=== PATIENT | female | born 1975 | race Caucasian/White ===

== ENCOUNTER 2018-03-04 21:57 | Inpatient (IN) | payer SELFPAY ==
[~2018-03-04] VITALS: Ht 157.5 cm; Wt 114.3 kg
[2018-03-05] MEDS ORDERED: SODIUM CHLORIDE 0.9% 1,000 ML IV ONE (00:09)
[2018-03-05] MEDS ORDERED: VANCOMYCIN 1 G PREMIX 200 ML IV ONE (00:15)
[2018-03-05] MEDS ORDERED: PIPERACILLIN/TAZ 3.375G PREMIX 50 ML IV ONE (00:15)
[2018-03-05 01:22] LABS: HEMATOCRIT. 23.3 % (36.0-48.0); MEAN CORPUSCULAR HEMOGLOBIN 17.9 pg (28.0-32.0); MEAN CORPUSCULAR VOLUME 60.4 fL (81.0-99.0); MEAN PLATELET VOLUME 7.3 fl (7.4-10.4); PLATELET 310 x1000/uL (130-400); RED BLOOD CELL COUNT 3.86 mill/uL (4.2-5.4); RED CELL DISTRIBUTION WIDTH 18.5 % (11.6-14.6)
[2018-03-05 01:26] LABS: HEMOGLOBIN. 6.9 g/dL (12.0-16.0)
[2018-03-05 01:28] LABS: CHLORIDE 101 mEq/L (98-107)
[2018-03-05 01:50] LABS: PLATELET ESTIMATE NORMAL
[2018-03-05] MEDS ORDERED: HYDROMORPHONE HCL/PF 2MG/ML CPJ IV PRN (05:00)
[2018-03-05] MEDS ORDERED: DOCUSATE SODIUM 100MG CAPSULE PO PRN (05:00)
[2018-03-05] MEDS ORDERED: CLONIDINE 0.1MG TABLET PO PRN (05:00)
[2018-03-05] MEDS ORDERED: AZITHROMYCIN 500 MG in DEXT 5% WATER 250 ML IV ONE (07:02)
[2018-03-05 07:09] LABS: CLARITY URINE CLOUDY (CLEAR); COLOR URINE YELLOW (YELLOW); KETONES URINE NEGATIVE (NEGATIVE); LEUKOCYTE ESTERASE URINE NEGATIVE (NEGATIVE); NITRITE URINE NEGATIVE (NEGATIVE); OCCULT BLOOD URINE 2+ (NEGATIVE); PROTEIN URINE 2+ (NEGATIVE); SPECIFIC GRAVITY URINE 1.021 (1.005-1.030); UROBILINOGEN URINE 0.2 E.U./dL (0.2-1.0)
[2018-03-05 09:55] VITALS: BP 127/59
[2018-03-05 10:00] VITALS: BP 127/59
[2018-03-05] MEDS ORDERED: LEVOFLOXACIN 500MG PREMIX 100 ML IV SCH (12:00)
[2018-03-05] MEDS: SODIUM CHLORIDE 0.45% 1,000 ML IV SCH ×2 (12:30→19:54)
[2018-03-05 12:38] VITALS: BP 132/63
[2018-03-05] MEDS: VANCOMYCIN 1 G PREMIX 200 ML IV SCH ×2 (12:40→21:31)
[2018-03-05] MEDS: ACETAMINOPHEN 325MG TABLET PO PRN (12:56)
[2018-03-05 16:35] VITALS: BP 120/61
[2018-03-05 20:15] VITALS: BP 145/67
[2018-03-06] VITALS (13 sets, daily range): BP systolic 106–145; BP diastolic 49–86
[2018-03-06 03:21] LABS: CHLORIDE 100 mEq/L (98-107)
[2018-03-06] MEDS: VANCOMYCIN 1 G PREMIX 200 ML IV SCH ×3 (03:47→22:39)
[2018-03-06 06:41] LABS: BASOPHILS % 0.2 % (0.0-2.0); LYMPHOCYTES % 8.6 % (20.0-50.0); MEAN CORPUSCULAR HEMOGLOBIN 18.9 pg (28.0-32.0); MEAN CORPUSCULAR VOLUME 62.1 fL (81.0-99.0); MEAN PLATELET VOLUME 8.6 fl (7.4-10.4); NEUTROPHILS % 85.2 % (40.0-76.0); PLATELET 237 x1000/uL (130-400); RED BLOOD CELL COUNT 3.27 mill/uL (4.2-5.4); RED CELL DISTRIBUTION WIDTH 18.9 % (11.6-14.6)
[2018-03-06 07:07] LABS: HEMATOCRIT. 20.3 % (36.0-48.0); HEMOGLOBIN. 6.2 g/dL (12.0-16.0)
[2018-03-06] MEDS: SODIUM CHLORIDE 0.45% 1,000 ML IV SCH (08:15)
[2018-03-06] MEDS: FERROUS SULFATE 300MG/5ML UDC PO SCH ×2 (14:31→18:02)
[2018-03-06 15:36] LABS: TOTAL IRON BINDING CAPACITY 473 ug/dL (250-450)
[2018-03-06] MEDS: LEVOFLOXACIN 500MG PREMIX 100 ML IV SCH (16:19)
[2018-03-06 17:43] LABS: HEMATOCRIT 23.4 % (36.0-48.0); HEMOGLOBIN 7.2 g/dL (12.0-16.0)
[2018-03-06] MEDS: HYDROCODONE/ACETAMINOPHEN 5/325MG TABLET PO PRN (19:48)
[2018-03-06 22:30] LABS: BG BASE EXCESS 0.8 mmol/L (-2.0-2.0); BG CARBOXYHEMOGLOBIN 1.2 % (0.5-1.5); BG DEOXYHEMOGLOBIN 1.6 % (0.0-5.0); BG FRACTION INSPIRED OXYGEN 28; BG HCO3 ACT 24.4 mmol/L (22.0-26.0); BG METHEMOGLOBIN 0.3 % (0.0-1.5); BG OXYGEN SATURATION 98.4 % (92.0-98.5); BG OXYHEMOGLOBIN 96.9 % (94.0-97.0); BG PCO2 34.6 mmHg (35.0-45.0); BG PH 7.467 (7.350-7.450); BG PO2 108.6 mmHg (75.0-100.0); BG SAMPLE SITE LEFT RADIAL; BG TOTAL HEMOGLOBIN 7.3 g/dL (12.0-18.0); BG VENT MODE NASAL CANNULA
[2018-03-06] MEDS: ACETAMINOPHEN 325MG TABLET PO PRN (22:40)
[2018-03-07] VITALS (17 sets, daily range): BP systolic 112–157; BP diastolic 55–89
[2018-03-07] MEDS: HYDROCODONE/ACETAMINOPHEN 5/325MG TABLET PO PRN (00:40)
[2018-03-07] MEDS: VANCOMYCIN 1 G PREMIX 200 ML IV SCH ×3 (05:37→21:29)
[2018-03-07 06:34] LABS: BASOPHILS % 0.3 % (0.0-2.0); EOSINOPHILS % 0.5 % (0.0-5.0); HEMATOCRIT. 22.4 % (36.0-48.0); LYMPHOCYTES % 11.8 % (20.0-50.0); MEAN CORPUSCULAR HEMOGLOBIN 19.4 pg (28.0-32.0); MEAN CORPUSCULAR VOLUME 62.6 fL (81.0-99.0); MEAN PLATELET VOLUME 8.6 fl (7.4-10.4); MONOCYTES % 8.2 % (2.0-8.0); NEUTROPHILS % 79.2 % (40.0-76.0); PLATELET 213 x1000/uL (130-400); RED BLOOD CELL COUNT 3.57 mill/uL (4.2-5.4); RED CELL DISTRIBUTION WIDTH 21.2 % (11.6-14.6)
[2018-03-07 07:27] LABS: CHLORIDE 102 mEq/L (98-107)
[2018-03-07 07:41] LABS: HEMOGLOBIN. 6.9 g/dL (12.0-16.0)
[2018-03-07] MEDS: FERROUS SULFATE 300MG/5ML UDC PO SCH ×3 (07:50→17:51)
[2018-03-07] MEDS: ACETAMINOPHEN 325MG TABLET PO PRN (10:32)
[2018-03-07] MEDS ORDERED: IPRATROPIUM/ALBUTEROL 0.5-3(2.5)MG/3ML NEB HHN PRN (15:00)
[2018-03-07] MEDS: LEVOFLOXACIN 500MG PREMIX 100 ML IV SCH (15:21)
[2018-03-07 17:54] LABS: HEMATOCRIT 22.8 % (36.0-48.0)
[2018-03-07 17:56] LABS: INR 0.9; PARTIAL THROMBOPLASTIN TIME 26.1 sec (23.4-31.0); PROTHROMBIN TIME 9.4 sec (9.1-11.1)
[2018-03-07 18:15] LABS: FOLIC ACID (FOLATE) SERUM 13.2 ng/mL (>5.38)
[2018-03-07] MEDS ORDERED: DIATR MEGLU/DIATRIZOATE SOLN 30ML PO NR (18:45)
[2018-03-07 20:29] LABS: CHLORIDE 100 mEq/L (98-107)
[2018-03-07] MEDS: METOCLOPRAMIDE HCL 10MG/2ML VIAL IV SCH ×2 (20:33→23:23)
[2018-03-07] MEDS: BISACODYL 5MG TABLET PO SCH ×2 (21:01→23:54)
[2018-03-07] MEDS: SORBITOL 70% SOLN 30ML PO SCH ×2 (21:01→23:53)
[2018-03-07] MEDS: IPRATROPIUM/ALBUTEROL 0.5-3(2.5)MG/3ML NEB HHN SCH (21:08)
[2018-03-07 22:35] LABS: HCG SCREEN NEGATIVE
[2018-03-07] MEDS ORDERED: POTASSIUM CHLORIDE 20MEQ/PACKET PO NR (22:50)
[2018-03-08] VITALS (14 sets, daily range): BP systolic 126–159; BP diastolic 71–94
[2018-03-08] MEDS: IPRATROPIUM/ALBUTEROL 0.5-3(2.5)MG/3ML NEB HHN SCH ×2 (01:15→21:02)
[2018-03-08] MEDS: METOCLOPRAMIDE HCL 10MG/2ML VIAL IV SCH ×2 (01:40→03:31)
[2018-03-08] MEDS: SORBITOL 70% SOLN 30ML PO SCH ×2 (02:07→04:09)
[2018-03-08] MEDS: BISACODYL 5MG TABLET PO SCH ×2 (02:07→04:09)
[2018-03-08] MEDS: VANCOMYCIN 1 G PREMIX 200 ML IV SCH ×3 (05:27→21:11)
[2018-03-08 06:54] LABS: HEMATOCRIT. 29.6 % (36.0-48.0); HEMOGLOBIN. 9.5 g/dL (12.0-16.0); MEAN CORPUSCULAR HEMOGLOBIN 21.4 pg (28.0-32.0); MEAN CORPUSCULAR VOLUME 66.7 fL (81.0-99.0); MEAN PLATELET VOLUME 8.6 fl (7.4-10.4); PLATELET 252 x1000/uL (130-400); RED BLOOD CELL COUNT 4.43 mill/uL (4.2-5.4); RED CELL DISTRIBUTION WIDTH 25.5 % (11.6-14.6)
[2018-03-08 06:56] LABS: INR 0.9; PROTHROMBIN TIME 9.5 sec (9.1-11.1)
[2018-03-08 07:06] LABS: CHLORIDE 104 mEq/L (98-107)
[2018-03-08 07:15] LABS: PHOSPHORUS 3.6 mg/dL (2.5-4.9)
[2018-03-08] MEDS: FERROUS SULFATE 300MG/5ML UDC PO SCH ×3 (07:20→16:29)
[2018-03-08] MEDS: ASCORBIC ACID 500 MG TABLET PO SCH ×2 (07:49→21:11)
[2018-03-08 10:55] LABS: PLATELET ESTIMATE NORMAL
[2018-03-08] MEDS ORDERED: PROPOFOL 200MG/20ML VIAL IV ONE (11:39)
[2018-03-08] MEDS ORDERED: DEXAMETHASONE 4MG/ML 1ML VIAL ONE (11:40)
[2018-03-08] MEDS ORDERED: LIDOCAINE HCL/PF 1% 10 MG/ML 5ML VIAL ONE (11:40)
[2018-03-08] MEDS ORDERED: SIMETHICONE 40 MG/0.6 ML 30ML ONE (11:52)
[2018-03-08 12:02] LABS: HEPATITIS B SURFACE ANTIGEN NEGATIVE
[2018-03-08 12:32] LABS: HEPATITIS A AB IGM NEGATIVE (NEGATIVE)
[2018-03-08] MEDS: LEVOFLOXACIN 500MG PREMIX 100 ML IV SCH (14:32)
[2018-03-09] VITALS (9 sets, daily range): BP systolic 126–157; BP diastolic 71–92
[2018-03-09] MEDS: HYDROCODONE/ACETAMINOPHEN 5/325MG TABLET PO PRN ×3 (00:09→09:51)
[2018-03-09] MEDS: IPRATROPIUM/ALBUTEROL 0.5-3(2.5)MG/3ML NEB HHN SCH ×4 (01:23→20:34)
[2018-03-09] MEDS: ONDANSETRON HCL 4MG/2ML INJ IV PRN ×2 (03:40→15:04)
[2018-03-09] MEDS: VANCOMYCIN 1 G PREMIX 200 ML IV SCH ×2 (05:16→17:30)
[2018-03-09 07:12] LABS: BASOPHILS % 0.3 % (0.0-2.0); EOSINOPHILS % 0.5 % (0.0-5.0); HEMATOCRIT. 32.4 % (36.0-48.0); HEMOGLOBIN. 10.1 g/dL (12.0-16.0); MEAN CORPUSCULAR HEMOGLOBIN 21.1 pg (28.0-32.0); MEAN CORPUSCULAR VOLUME 67.5 fL (81.0-99.0); MEAN PLATELET VOLUME 7.8 fl (7.4-10.4); MONOCYTES % 5.9 % (2.0-8.0); NEUTROPHILS % 81.3 % (40.0-76.0); PLATELET 339 x1000/uL (130-400); RED CELL DISTRIBUTION WIDTH 26.1 % (11.6-14.6)
[2018-03-09 07:18] LABS: CHLORIDE 101 mEq/L (98-107)
[2018-03-09] MEDS: FERROUS SULFATE 300MG/5ML UDC PO SCH ×3 (08:05→18:29)
[2018-03-09] MEDS: ASCORBIC ACID 500 MG TABLET PO SCH ×2 (08:05→20:51)
[2018-03-09] MEDS ORDERED: POTASSIUM CHLORIDE 20MEQ TABLET SR PO NR (08:45)
[2018-03-09] MEDS ORDERED: METOCLOPRAMIDE HCL 10MG/2ML VIAL IV NR ×4 (10:55→20:00)
[2018-03-09] MEDS ORDERED: BISACODYL 5MG TABLET PO NR ×3 (11:15→20:00)
[2018-03-09] MEDS ORDERED: SORBITOL 70% SOLN 30ML PO NR (11:30)
[2018-03-09] MEDS ORDERED: MAGNESIUM CITRATE 300ML SOLUTION PO NR ×2 (16:30→20:30)
[2018-03-09] MEDS: LEVOFLOXACIN 500MG PREMIX 100 ML IV SCH (18:29)
[2018-03-09 22:19] LABS: CHLORIDE 103 mEq/L (98-107)
[2018-03-10 00:06] VITALS: BP 133/84
[2018-03-10] MEDS: VANCOMYCIN 1 G PREMIX 200 ML IV SCH ×3 (01:11→19:06)
[2018-03-10] MEDS: IPRATROPIUM/ALBUTEROL 0.5-3(2.5)MG/3ML NEB HHN SCH ×4 (01:32→21:47)
[2018-03-10] MEDS ORDERED: METOCLOPRAMIDE HCL 10MG/2ML VIAL IV NR (02:00)
[2018-03-10 04:00] VITALS: BP 136/66
[2018-03-10 05:58] LABS: HEMATOCRIT. 32.2 % (36.0-48.0); HEMOGLOBIN. 10.1 g/dL (12.0-16.0); MEAN CORPUSCULAR HEMOGLOBIN 21.2 pg (28.0-32.0); MEAN CORPUSCULAR VOLUME 67.7 fL (81.0-99.0); MEAN PLATELET VOLUME 7.8 fl (7.4-10.4); PLATELET 395 x1000/uL (130-400); RED BLOOD CELL COUNT 4.77 mill/uL (4.2-5.4); RED CELL DISTRIBUTION WIDTH 26.3 % (11.6-14.6)
[2018-03-10 06:01] LABS: PARTIAL THROMBOPLASTIN TIME 27.4 sec (23.4-31.0); PROTHROMBIN TIME 9.9 sec (9.1-11.1)
[2018-03-10 06:16] LABS: CHLORIDE 101 mEq/L (98-107)
[2018-03-10] MEDS: FERROUS SULFATE 300MG/5ML UDC PO SCH ×3 (07:50→17:50)
[2018-03-10] MEDS ORDERED: METOCLOPRAMIDE HCL 10MG/2ML VIAL IV SCH (08:00)
[2018-03-10 08:47] VITALS: BP 141/64
[2018-03-10] MEDS: ASCORBIC ACID 500 MG TABLET PO SCH ×2 (09:00→20:23)
[2018-03-10 12:14] VITALS: BP 121/57
[2018-03-10 12:55] LABS: PLATELET ESTIMATE NORMAL
[2018-03-10 16:51] VITALS: BP 117/70
[2018-03-10] MEDS: DIATR MEGLU/DIATRIZOATE SOLN 30ML PO NR ×2 (17:30→17:49)
[2018-03-10] MEDS: LEVOFLOXACIN 500MG PREMIX 100 ML IV SCH (17:49)
[2018-03-10] MEDS: ONDANSETRON HCL 4MG/2ML INJ IV PRN (19:05)
[2018-03-10 20:00] VITALS: BP 141/77
[2018-03-10] MEDS ORDERED: IOHEXOL-300 100 ML BOTTLE ONE (21:32)
[2018-03-11 00:11] VITALS: BP 134/58
[2018-03-11] MEDS: VANCOMYCIN 1 G PREMIX 200 ML IV SCH (00:41)
[2018-03-11] MEDS: IPRATROPIUM/ALBUTEROL 0.5-3(2.5)MG/3ML NEB HHN SCH ×2 (01:55→11:12)
[2018-03-11 04:00] VITALS: BP 113/47
[2018-03-11] MEDS ORDERED: SIMETHICONE 80MG TABLET CHEW PO PRN (11:00)
[2018-03-11 11:14] LABS: T4 FREE 1.3 ng/dL (0.76-1.46)
[2018-03-11 12:02] VITALS: BP 127/58
[2018-03-11 13:06] LABS: ACTIN (SMOOTH MUSCLE) ANTIBODY 17 Units (0-19)
[2018-03-11 17:06] LABS: ANTI-NUCLEAR ANTIBODIES DIRECT Negative (Negative)
== END 2018-03-11 13:10 | disposition home or self-care (01) | DRG 720 ==
LOC: ER 21:57 → 6WST 03-05 02:38 → EDBEDREQ 03-05 02:40 → EDBEDREQTM 03-05 02:40 → EDBEDREQSVC 03-05 02:40 → ENRESERV 03-05 03:28 → 3WST 03-06 20:02 → 6WST 03-09 13:21
PROVIDERS: ADMIT Hospitalist; ATTEND Hospitalist
PROC: 30233N1 Transfusion of Nonautologous Red Blood Cells into Peripheral Vein, Percutaneous Approach (ICD-10-PCS; principal; 2018-03-05)
PROC: 5A09457 Assistance with Respiratory Ventilation, 24-96 Consecutive Hours, Continuous Positive Airway Pressure (ICD-10-PCS; 2018-03-05)
PROC: 5A09357 Assistance with Respiratory Ventilation, Less than 24 Consecutive Hours, Continuous Positive Airway Pressure (ICD-10-PCS; 2018-03-07)
PROC: 5A09357 Assistance with Respiratory Ventilation, Less than 24 Consecutive Hours, Continuous Positive Airway Pressure (ICD-10-PCS; 2018-03-08)
PROC: 5A09357 Assistance with Respiratory Ventilation, Less than 24 Consecutive Hours, Continuous Positive Airway Pressure (ICD-10-PCS; 2018-03-09)
PROC: 5A09357 Assistance with Respiratory Ventilation, Less than 24 Consecutive Hours, Continuous Positive Airway Pressure (ICD-10-PCS; 2018-03-10)
PROC: 5A09357 Assistance with Respiratory Ventilation, Less than 24 Consecutive Hours, Continuous Positive Airway Pressure (ICD-10-PCS; 2018-03-11)
DX: A41.9 Sepsis, unspecified organism (principal); E44.0 Moderate protein-calorie malnutrition; E66.01 Morbid (severe) obesity due to excess calories; K56.7 Ileus, unspecified; K92.2 Gastrointestinal hemorrhage, unspecified; L97.929 Non-pressure chronic ulcer of unspecified part of left lower leg with unspecified severity; R59.0 Localized enlarged lymph nodes; R04.0 Epistaxis; R04.2 Hemoptysis; R16.1 Splenomegaly, not elsewhere classified; L03.115 Cellulitis of right lower limb; F17.210 Nicotine dependence, cigarettes, uncomplicated; R74.0 Nonspecific elevation of levels of transaminase and lactic acid dehydrogenase [LDH]; I87.8 Other specified disorders of veins; Z53.9 Procedure and treatment not carried out, unspecified reason; D50.9 Iron deficiency anemia, unspecified; R09.02 Hypoxemia; A46 Erysipelas; R23.8 Other skin changes; G47.33 Obstructive sleep apnea (adult) (pediatric); N92.0 Excessive and frequent menstruation with regular cycle; Z82.49 Family history of ischemic heart disease and other diseases of the circulatory system; Z68.42 Body mass index [BMI] 45.0-49.9, adult; Z90.49 Acquired absence of other specified parts of digestive tract
CPT/HCPCS: 36415; 36600; 71045; 71260; 73700; 74177; 76700; 80048; 80061; 80076; 80202; 82270; 82375; 82390; 82607; 82728; 82746; 82805; 82962; 83036; 83540; 83550; 83605; 83735; 83880; 84100; 84145; 84439; 84443; 84484; 84703; 85014; 85018; 85379; 86038; 86705; 86709; 86803; 86850; 86900; 86920; 87340; 93005; 93306; 93970; 94640; 94660; 96365; 96366; 96368; 96375; 99291; A6261; J0456; J1100; J1170; J1956; J2405; J2543; J2704; J2765; J3370; J3490; J7030; J7040; J7050; J7060; J7620; P9016; Q9963; Q9967